=== PATIENT | female | born 1970 | race Caucasian/White ===

== ENCOUNTER 2021-01-14 15:18 | Outpatient (REF) | payer OTHER, SELFPAY ==
[2021-01-14 15:40] LABS: MANUAL DIFF FLAG NO
[2021-01-14 16:31] LABS: Basophils Absolute Auto 0.1 X10*3/uL (0.0-0.2); Basophils Percent Auto 0.5 % (0-2); Eosinophils Absolute Auto 0.2 X10*3/uL (0.0-0.4); Eosinophils Percent Auto 1.6 % (0-4); Hematocrit 46.2 % (37.0-47.0); Hemoglobin 15.3 g/dl (12.0-16.0); Imm Gran Abs Auto 0.04 X10*3/uL (0.00-0.03); Imm Gran Pct Auto 0.4 % (0.0-0.4); Lymphocytes Absolute Auto 3.3 X10*3/uL (1.2-4.9); Lymphocytes Percent Auto 29.8 % (20-40); Mean Corpuscular HGB Conc 33.1 g/dl (31.0-35.0); Mean Corpuscular Hemoglobin 29.9 pg (27.0-33.0); Mean Corpuscular Volume 90.4 fL (80.0-98.0); Mean Platelet Volume 10.6 fL (9.4-12.3); Monocytes Absolute Auto 0.7 X10*3/uL (0.1-1.2); Monocytes Percent Auto 6.6 % (2-11); Neutrophils Absolute Auto 6.8 x10*3/uL (2.0-8.3); Neutrophils Percent Auto 61.1 % (45-73); Platelet Count 338 X10*3/uL (160-400); Red Blood Count 5.11 X10*6/uL (4.20-5.50); Red Cell Distribution Width 13.8 % (11.0-16.0); White Blood Count 11.1 X10*3/uL (4.8-10.8)
[2021-01-14 17:13] LABS: Alanine Aminotransferase 19 U/L (0-31); Albumin Level 4.4 g/dL (3.5-5.0); Alkaline Phosphatase 64 U/L (39-117); Amylase 36 U/L (28-100); Aspartate Amino Transferase 16 U/L (5-31); Bilirubin Direct 0.2 mg/dL (0.0-0.5); Bilirubin Total 0.4 mg/dL (0.0-1.0); Lipase 29 U/L (8-78)
[2021-01-15 11:36] LABS: Immunoglobulin A 239 mg/dL (47-310)
[2021-01-19 15:46] LABS: Endomysial IgA Antibody Negative (Negative)
[2021-01-22 11:15] LABS: Gliadin Deamidated IgA Ab <1.0 U/mL; Transglutaminase Ab IgG 1.3 U/mL; Transglutaminase IgA <1.0 U/mL
== END 2021-01-14 15:19 | disposition home or self-care (01) ==
LOC: HO.LAB 15:18
PROVIDERS: Visit Provider Internal Medicine
DX: K58.0 Irritable bowel syndrome with diarrhea (principal); R14.0 Abdominal distension (gaseous)
CPT/HCPCS: 36415; 80076; 82150; 82784; 83516; 83690; 85025; 86255; 86256

== ENCOUNTER 2021-01-31 11:13 | Day surgery (SDC) | payer OTHER, SELFPAY ==
[2021-01-25 11:38] VITALS: BMI 34.7
--- NOTE | 2021-01-26 08:55 | HO.ANESPROP2 ---
Documented by User: Carina Mendiola NP 01/26/21 08:56 HPI - Anesthesia Eval Consult details Narrative: 50yo F for Upper Endoscopy and Colonoscopy PMFSH Past Medical History Medical History Anxiety Bloating Low back pain Lumbar herniated disc Nausea & vomiting Surgical History Surgical History History of left oophorectomy Hx of colonoscopy Hx of tubal ligation Social History Social History Patient Tobacco Use Status: Current everyday Tobacco user Tobacco use type: Cigarette Cigarettes Per Day: 4 Are you DNR?: No Advance Directives: No Advance Directives Information Provided: Yes Advance Directives on File: No Patient : No FDLMP: 12/31/2020 : No Poor oral hygiene: No Meds Allergies Allergy/AdvReac Type Severity Reaction Status Date / Time latex Allergy Rash Verified 01/25/21 11:35 antibiotic Allergy Rash, Uncoded 01/25/21 11:35 unknown name Home Medications Medication Instructions Recorded Confirmed Last Taken Type albuterol sulfate 90 mcg/actuation INHALATION 01/25/21 Unknown History aerosol inhaler (ProAir HFA) bupropion HCl 150 mg tablet,12 hr 1 tab PO BID 01/25/21 01/25/21 Unknown History sustained-release cetirizine 10 mg tablet 1 tab PO DAILY 01/25/21 01/25/21 Unknown History clonazepam 1 mg tablet 1 tab PO BID PRN 01/25/21 01/25/21 Unknown History diclofenac potassium 50 mg tablet mg PO BEDTIME 01/25/21 Unknown History escitalopram oxalate 5 mg tablet 1 tab PO DAILY 01/25/21 01/25/21 Unknown History loratadine 10 mg tablet 1 tab PO DAILY 01/25/21 01/25/21 Unknown History omeprazole 20 mg capsule,delayed 1 cap PO DAILY 01/25/21 01/25/21 Unknown History release ondansetron HCl 4 mg tablet 1 tab PO Q8H PRN 01/25/21 01/25/21 Unknown History sodium chloride 0.65 % nasal spray spray INTRANASAL 01/25/21 Unknown History aerosol (Saline Mist) zolpidem 10 mg tablet 1 tab PO BEDTIME PRN 01/25/21 01/25/21 Unknown History Exam Exam Date and Time: January 26, 2021 0855 Height,Weight and Vital Signs: Height 5 ft Weight 80.739 kg Pertinent Lab Results Pertinent Lab Results: Laboratory Tests 01/14/21 15:38 WBC 11.1 H Hgb 15.3 Hct 46.2 Plt Count 338 Assessment and Plan Assessment Anesthesia Assessment: Chart Reviewed Documented by User: Shalini Mcmullen MD 01/31/21 13:35 [facility] Past Medical History Medical History Anxiety Bloating Low back pain Lumbar herniated disc Nausea & vomiting Functional capacity: wheelchair bound Surgical History Surgical History History of left oophorectomy Hx of colonoscopy Hx of tubal ligation History of Problems with Anesthesia: No Social History Social History Patient Tobacco Use Status: Current everyday Tobacco user Tobacco use type: Cigarette Cigarettes Per Day: 4 Are you DNR?: No Advance Directives: No Advance Directives Information Provided: Yes Advance Directives on File: No Patient : No FDLMP: 12/31/2020 : No Poor oral hygiene: No Meds Allergies Allergy/AdvReac Type Severity Reaction Status Date / Time latex Allergy Rash Verified 01/25/21 11:35 antibiotic Allergy Rash, Uncoded 01/25/21 11:35 unknown name Home Medications Medication Instructions Recorded Confirmed Last Taken Type albuterol sulfate 90 mcg/actuation INHALATION 01/25/21 Unknown History aerosol inhaler (ProAir HFA) bupropion HCl 150 mg tablet,12 hr 1 tab PO BID 01/25/21 01/25/21 Unknown History sustained-release cetirizine 10 mg tablet 1 tab PO DAILY 01/25/21 01/25/21 Unknown History clonazepam 1 mg tablet 1 tab PO BID PRN 01/25/21 01/25/21 Unknown History diclofenac potassium 50 mg tablet mg PO BEDTIME 01/25/21 Unknown History escitalopram oxalate 5 mg tablet 1 tab PO DAILY 01/25/21 01/25/21 Unknown History loratadine 10 mg tablet 1 tab PO DAILY 01/25/21 01/25/21 Unknown History omeprazole 20 mg capsule,delayed 1 cap PO DAILY 01/25/21 01/25/21 Unknown History release ondansetron HCl 4 mg tablet 1 tab PO Q8H PRN 01/25/21 01/25/21 Unknown History sodium chloride 0.65 % nasal spray spray INTRANASAL 01/25/21 Unknown History aerosol (Saline Mist) zolpidem 10 mg tablet 1 tab PO BEDTIME PRN 01/25/21 01/25/21 Unknown History Exam Airway Mallampati Class: II TM Dist: >3cm Neck ROM: Full Heart: RRR Lungs: CTA Assessment and Plan Assessment Anesthesia Assessment: Anesthesia Plan Discussed Final Anesthetic Review History of Problems with Anesthesia: No NPO: Yes ASA Class: II Final Preanesthetic Review: Meds/Allgs Chart Reviewed, Consent Obtained/Reviewed and Anes Risks/Benef Reviewed Patient Risk: Low Procedure Risk: Intermediate Anesthetic Plan Anesthetic Plan: MAC: Disposition: Standard PACU
[2021-01-31 12:17] VITALS: BP 102/69; PULSE 73; RESP 18; TEMP 36.1; O2SAT 97
[2021-01-31] MEDS: Lactated Ringers 1,000 ML 100 ML IVCONT (12:44)
[2021-01-31 15:22] VITALS: BP 118/77; PULSE 77; RESP 16; TEMP 36.1; O2SAT 96
--- NOTE | 2021-01-31 15:26 | PM.OP ---
Brief Operative Note Date of Service: 01/31/21 Pre-op diagnosis: GERD, Screening, Irregular BM's, Abdominal discomfort Post-op diagnosis: other (Hiatal hernia, R/O Moore's, Gastritis, R/O Celiac disease, R/O Microscopic colitis, Diverticulosis) Procedure: EGD with biopsies, Colonoscopy to the cecum with biopsies Surgeon: Augustus Collins Anesthesia: MAC Was an Chief Of Field Operations used for this Procedure?: No Estimated blood loss (mL): 3.0 Pathology: other (A. Descending duodenum B. Gastric antrum C. EG Junction at 35cm D. Ascending colon E. Descending colon) Condition: stable Disposition: PACU
[2021-01-31 15:37] VITALS: BP 125/74; PULSE 80; RESP 16; TEMP 36.1; O2SAT 96
--- NOTE | 2021-01-31 18:37 | OP_ITS ---
SURGEON: Augustus Collins MD INDICATIONS: The patient presents for evaluation of abdominal discomfort, irregular bowel movements, and gastroesophageal reflux. Full consent has been obtained from her for both procedures, including risks of bleeding and perforation. PREOPERATIVE DIAGNOSIS: POSTOPERATIVE DIAGNOSIS: PROCEDURE PERFORMED: Esophagogastroduodenoscopy with biopsies, and colonoscopy to cecum with biopsies. ESTIMATED BLOOD LOSS: COMPLICATIONS: ANESTHESIA: Monitored anesthesia care. ASSISTANTS: SPECIMENS: PREOPERATIVE DIAGNOSES: Gastroesophageal reflux, abdominal discomfort, irregular bowel movements, and colorectal cancer screening. POSTOPERATIVE DIAGNOSES: Gastroesophageal reflux, abdominal discomfort, irregular bowel movements, and colorectal cancer screening, hiatal hernia, gastritis, rule out celiac disease, rule out microscopic colitis, sigmoid diverticulosis, and internal hemorrhoids. DESCRIPTION OF PROCEDURE: The patient was placed in the left lateral decubitus position. The Olympus video gastroscope was passed in the posterior oropharynx and upper esophagus under direct vision. The scope was passed slowly into the distal esophagus. The gastroesophageal junction appeared at 35 cm. This area was notable for some irregularity consistent with some reflux and one small area of possible Moore's mucosa. There was no esophagitis. There was a small hiatal hernia. The scope was advanced to pylorus and the duodenum was cannulated to the descending portion. The duodenum including the bulb appeared normal without mass or ulceration. Biopsies were obtained from the descending duodenum. The scope was withdrawn back into the stomach. The gastric antrum had areas of chronic appearing gastritis with 2 less than 5 mm erosions. There was good peristalsis. Biopsies were obtained from the gastric antrum. There were no ulcerations nor masses. The scope was retroflexed visualizing the proximal stomach carefully which appeared normal, without any sign of mass or ulceration. The scope was straightened out and withdrawn back into the esophagus. Biopsies were obtained at the EG junction at 35 cm. Proximal to this, the esophageal mucosa appeared normal. The scope was withdrawn from the patient. She was turned around for the colonoscopy. The digital rectal exam revealed no abnormalities. The Olympus video pediatric colonoscope was entered into the rectum and advanced easily to the cecum. Once in the cecum, I did identify normal-appearing cecal pouch with appendiceal orifice and a normal-appearing ileocecal valve. The entire cecum and ileocecal valve appeared normal. The scope was slowly withdrawn assessing all mucosal surfaces carefully. Preparation was excellent. I did not visualize any sign of polyps, colitis, nor angiodysplasia. There was a mild amount of sigmoid diverticulosis. I did obtain random biopsies in the ascending and descending colon to rule out microscopic colitis. There were occasional diverticula noted in the sigmoid colon. In the rectum, scope was retroflexed visualizing small internal hemorrhoids, but no other pathology. The rectal mucosa appeared normal. The scope was straightened out and withdrawn from the patient. She tolerated both procedures well and was returned to recovery area in stable condition. IMPRESSION: 1. Gastritis. 2. Hiatal hernia, gastroesophageal reflux, rule out Moore's esophagus. 3. Rule out celiac disease. 4. Rule out microscopic colitis. 5. Mild diverticulosis. 6. Internal hemorrhoids. PLAN: The results of the biopsies will be checked. Given the upper endoscopy findings, I shall start her on omeprazole 20 mg daily. She was advised to continue her dicyclomine on a p.r.n. basis. Recent laboratories have been negative including pancreatic enzymes, LFTs, CBC, and celiac disease labs. I would recommend a repeat colonoscopy in 10 years for further screening. She will continue dicyclomine as needed for abdominal bloating. She will see me in several months for a followup visit. MD RUTHANN Langley/ARLENE / [id number]
== END 2021-01-31 16:10 | disposition home or self-care (01) ==
PROVIDERS: Visit Provider Internal Medicine
PROC: (CPT 45380; principal; 2021-01-31 13:20)
DX: Z12.11 Encounter for screening for malignant neoplasm of colon (principal); K57.30 Diverticulosis of large intestine without perforation or abscess without bleeding; K64.8 Other hemorrhoids; R19.4 Change in bowel habit; K21.9 Gastro-esophageal reflux disease without esophagitis; K29.50 Unspecified chronic gastritis without bleeding; K44.9 Diaphragmatic hernia without obstruction or gangrene; B96.81 Helicobacter pylori [H. pylori] as the cause of diseases classified elsewhere; Z79.899 Other long term (current) drug therapy
CPT/HCPCS: 45380; 43239; 88305; 88342

== ENCOUNTER 2021-02-07 09:25 | Outpatient (REF) | payer OTHER, SELFPAY ==
--- NOTE | ~2021-02-07 | US_ITS ---
EXAMINATION: US ABDOMEN COMPLETE CLINICAL INFORMATION: Discomfort, epigastric. COMPARISON: None TECHNIQUE: Real-time imaging of the abdominal viscera. FINDINGS: PANCREAS: Normal. ABDOMINAL AORTA: The proximal, mid and distal segments are normal in caliber. There is atherosclerotic plaque in the distal segment. INFERIOR VENA CAVA: Visualized portions are normal. LIVER: The liver is enlarged measuring 17.7 cm in length. The liver contour is normal. The liver is mildly echogenic. No focal hepatic lesion. There is no intrahepatic biliary duct dilatation seen. GALLBLADDER: Gallbladder wall thickness measures 0.3 cm. The gallbladder is physiologically distended without evidence of stones, sludge, polyps, wall thickening or pericholecystic fluid. COMMON BILE DUCT: Normal in caliber measuring 0.4 cm in diameter. RIGHT KIDNEY: Normal. No hydronephrosis. No renal calculi or focal parenchymal lesions. The kidney measures 10.8 cm in maximum dimension. LEFT KIDNEY: Normal. No hydronephrosis. No renal calculi or focal parenchymal lesions. The kidney measures 11.0 cm in maximum dimension. SPLEEN: Normal. The spleen measures 7.8 cm in maximum dimension. FREE FLUID: None. US/US abdomen complete IMPRESSION: Mild hepatomegaly with diffuse hepatic echogenicity. No focal lesion is seen. There is atherosclerotic plaque seen in the distal abdominal aorta. The rest of the abdominal ultrasound is unremarkable.
== END 2021-02-07 09:26 | disposition home or self-care (01) ==
LOC: HO.US 09:25
PROVIDERS: Visit Provider Internal Medicine
DX: R10.13 Epigastric pain (principal)
CPT/HCPCS: 76700